=== PATIENT | female | born 1945 | race Caucasian/White ===

== ENCOUNTER 2017-08-07 15:06 | Emergency (ER) | payer MEDICARE, OTHER ==
[~2017-08-07] VITALS: Ht 157.5 cm; Wt 77.0 kg
[~2017-08-07 15:06] MED LIST: BONI150T PO; VYTO10TA29 PO
[2017-08-07 15:26] VITALS: BP 127/67; PULSE 86; RESP 16; TEMP 98.1; O2SAT 96
[2017-08-07] MEDS ORDERED: LIPI40TA PO (16:18)
--- NOTE | 2017-08-07 17:31 | RADRPT ---
EXAM DATE/TIME: 08/07/2017 16:45 [place] COMPARISON: No previous studies available for comparison. INDICATIONS : Right knee pain post fall. MEDICAL HISTORY : None. SURGICAL HISTORY : left total knee ENCOUNTER: Initial ACUITY: 1 day PAIN SCORE: 10/10 LOCATION: Right knee FINDINGS: There is a nondisplaced fracture of the patella. The femur and tibia are intact. 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 CONCLUSION: 1. Patella fracture Walker Malin MD on August 07, 2017 at 17:29 Board Certified Radiologist. This report was verified electronically.
[2017-08-07] MEDS ORDERED: HYDR-3533 PO (17:46)
--- NOTE | 2017-08-07 17:46 | PD ---
HPI Chief Complaint: Fall Time Seen by Provider: 16:32 Travel History International Travel<30 days: No Contact w/Intl Traveler<30days: No Traveled to known affect area: No History of Present Illness HPI 72-year-old female presents to the emergency room for evaluation of right knee pain and swelling after falling earlier today. Patient stubbed her toe and fell forward landing directly on her right knee. She denies hitting her head or loss of consciousness. She had immediate pain and has not been able to walk without pain since then. Patient has minimal pain at rest or when her leg is bent but severe pain when her leg is straightened. It is localized to the patella without radiation. Denies any other injuries including neck pain, back pain, hip pain, or paresthesias. She only is on medication for hypercholesterolemia. PFSH Past Medical History High Cholesterol: Yes ?: Not Menopausal: Yes Tubal Ligation: Yes Past Surgical History Appendectomy: Yes Cholecystectomy: Yes Thoracic Surgery: Yes (BREAST REDUCTION) Tonsillectomy: Yes Social History Alcohol Use: No Tobacco Use: No Substance Use: No Allergies-Medications (Allergen,Severity, Reaction): Coded Allergies: No Known Allergies (Verified , 03/21/10) Reported Meds & Prescriptions Reported Meds & Active Scripts Active Lortab (Hydrocodone-Acetaminophen) 5-325 Mg Tab 1 Tab PO Q6H PRN Reported Lipitor (Atorvastatin Calcium) 40 Mg Tab 40 Mg PO HS Review of Systems Except as stated in HPI: all other systems reviewed are Neg Physical Exam Narrative GENERAL: Well-nourished, well-developed female in no acute distress. Afebrile. Resting comfortably in bed with knee slightly bent. SKIN: Focused skin assessment warm/dry. Moderate ecchymosis of the right knee. HEAD: Normocephalic. EYES: No scleral icterus. No injection or drainage. NECK: Supple, trachea midline. No JVD or lymphadenopathy. CARDIOVASCULAR: Regular rate and rhythm without murmurs, gallops, or rubs. RESPIRATORY: Breath sounds equal bilaterally. No accessory muscle use. MUSCULOSKELETAL: No cyanosis. Significant edema of the right knee.Pulse. Full range of motion of the right knee. Patient has pain with extension but is able to do so. Extreme tenderness to palpation of the patella. BACK: Nontender without obvious deformity. No CVA tenderness. Data Data Last Documented VS Vital Signs Date Time Temp Pulse Resp B/P (MAP) Pulse Ox O2 Delivery O2 Flow Rate FiO2 08/07/17 15:26 98.1 86 16 127/67 (87) 96 Orders Orders Knee, Complete (4vws) (08/07/17 ) Crutches (08/07/17 18:06) ^ Knee Immobilizer (08/07/17 18:06) Ed Discharge Order (08/07/17 19:10) MDM Medical Decision Making Medical Screen Exam Complete: Yes Emergency Medical Condition: Yes Medical Record Reviewed: Yes Differential Diagnosis Fracture, contusion, abrasion, strain, sprain Narrative Course 72-year-old female presents to the emergency room for evaluation of right knee pain and swelling after falling just prior to arrival. Patient fell forward landing directly on her right knee. No other injuries. Right lower extremity is neurovascularly intact with 2+ dorsalis pedis pulse. Patient has full range of motion but with significant pain during extension. There is tenderness to palpation and moderate edema and ecchymosis of the patella. X-ray shows nondisplaced patellar fracture. Patient placed in knee immobilizer and given crutches. I spoke to the orthopedic surgeon on-call who recommends follow-up on outpatient basis; patient can bear weight as long as her leg is in full extension. She was discharged with crutches and orthopedic instructions and told to follow up with her orthopedist or return for worsening symptoms. Discharged with prescription for Lortab. She understands and agrees to plan. Diagnosis Primary Impression: Right patella fracture Qualified Codes: S82.044A - Nondisplaced comminuted fracture of right patella , initial encounter for closed fracture Referrals: Orthopaedic Surgeon Primary Care Physician Additional Instructions: Rest and drink plenty of fluids. Use knee immobilizer and crutches continuously until follow-up. Take Lortab with food as directed, as needed for pain. Do not drink alcohol or drive taking this medication. Apply ice to the affected area for 20 minutes at a time, as needed for pain and swelling. Follow-up with an orthopedic surgeon. Return to the emergency room for worsening symptoms. Med/Other Pt SpecificInfo: Prescription(s) given Scripts Hydrocodone-Acetaminophen (Lortab) 5-325 Mg Tab 1 TAB PO Q6H Y for PAIN, #15 TAB 0 Refills Prov: Ed Carballo MD 08/07/17 Disposition: 01 DISCHARGE HOME Condition: Stable Joana Hughes Aug 07, 2017 17:46
== END 2017-08-07 18:56 | disposition home or self-care (01) ==
LOC: PHED 15:06 → PHEFT 18:56
DX: S82.044A Nondisplaced comminuted fracture of right patella, initial encounter for closed fracture (principal); E78.5 Hyperlipidemia, unspecified; W18.30XA Fall on same level, unspecified, initial encounter
CPT/HCPCS: 73564; 99283; E0113

== ENCOUNTER 2018-03-10 11:51 | Observation (INO) | END 2018-03-11 19:23 | disposition home or self-care (01) | DX: R07.89 Other chest pain (principal); I10 Essential (primary) hypertension; E78.5 Hyperlipidemia, unspecified; I49.9 Cardiac arrhythmia, unspecified; R94.39 Abnormal result of other cardiovascular function study; Z79.899 Other long term (current) drug therapy; Z79.82 Long term (current) use of aspirin | CPT/HCPCS: 71045; 78452; 80048; 82550; 83735; 84484; 85025; 85610; 85730; 93005; 93017; 93306; 96372; 99285; A9502; G0378; J1644; J2785 ==